=== PATIENT | male | born 2005 | race Caucasian/White ===

== ENCOUNTER 2023-11-21 23:28 | Emergency (ER) | payer MEDICAID ==
[~2023-11-21] VITALS: Ht 172.7 cm; Wt 91.0 kg
[2023-11-21 23:35] VITALS: TEMP 98; O2SAT 98
[2023-11-22] MEDS ORDERED: TRANEXAMIC ACID 1,000MG/10ML TP ONE
[2023-11-22 00:39] VITALS: BP 123/81; PULSE 77; RESP 16
[2023-11-22] MEDS: KETOROLAC 15MG/ML VIAL IM ONE (00:39)
== END 2023-11-22 02:00 | disposition home or self-care (01) ==
LOC: ER 23:28
DX: N48.29 Other inflammatory disorders of penis (principal)
CPT/HCPCS: 99283; 96372; J1885